=== PATIENT | male | born 1940 | race Caucasian/White ===

== ENCOUNTER 2024-08-30 23:54 | Emergency (ER) | payer MEDICARE, SELFPAY ==
--- NOTE | 2024-08-30 23:32 | ECG_ITS ---
APPROVED REPORT Exam: Resting ECG HR:66 bpm ECG Measurements Heart Rate 66 AXES QRSd 104 QRS 80 QT 448 T 16 QTc 462 Conclusion ATRIAL FIBRILLATION SEPTAL MYOCARDIAL INFARCTION , OF INDETERMINATE AGE [40+ ms Q WAVE IN V1/V2] MARKED ST DEPRESSION, CONSIDER SUBENDOCARDIAL INJURY [0.2+ mV ST DEPRESSION] ACUTE NV INTERPRETATION BASED ON A DEFAULT AGE OF 40 YEARS UNCONFIRMED REPORT Electronically signed by : WINSTON BECKHAM, 09/01/2024 06:49:13
[2024-08-30 23:37] VITALS: BP 39/21; PULSE 60; RESP 11; TEMP 35.9; O2SAT 94; BMI 15.6
--- NOTE | 2024-08-30 23:37 | XR_ITS ---
PROCEDURE INFORMATION: Exam: XR Chest Exam date and time: 08/30/2024 11:31 PM Age: 84 years old Clinical indication: Device placement; Ett placement (vent status); Additional info: Cardiac arrest TECHNIQUE: Imaging protocol: Radiologic exam of the chest. Views: 1 view. COMPARISON: No relevant prior studies available. FINDINGS: Tubes, catheters and devices: Endotracheal tube within the right main bronchus. Lungs: Severe pulmonary fibrotic change. Pleural spaces: Unremarkable. No pleural effusion. No pneumothorax. Heart/Mediastinum: Unremarkable. No cardiomegaly. Bones/joints: Unremarkable. Intraperitoneal space: Prominent gas left upper abdomen, upright KUB or CT might be important to exclude free air. IMPRESSION: Endotracheal tube as described.
--- NOTE | 2024-08-30 23:55 | HMH.EDGENADL ---
Discharge Plan Disposition Patient Disposition: Date/Time: 08/31/24 00:14 Clinical Impressions Clinical Impression: Cardiac arrest, Pulmonary fibrosis Discharge ED Provider: Jad Marsh Adult HPI General Stated complaint: Code Time Seen by Provider: 08/30/24 23:55 History of Present Illness HPI narrative: 84-year-old male with history of end-stage pulmonary fibrosis as well as other comorbidities presents after cardiac arrest. Patient was found some [place] in a chair and family did not want to do CPR. They called 911 and when EMS arrives the family did not have a DNR so EMS felt compelled to initiate CPR. And route to the hospital patient got a pulse back. Patient was intubated prior to arrival to the ER. On arrival patient had a irregular slow rhythm, blood pressure on cuff is in the 30s systolic. Patient does have a palpable pulse. [facility] Disclaimer: The information contained in this section may have been updated after the patient was seen, as this information can be updated by other users. Social History (Updated 08/31/24 @ 00:35 by Jad Marsh MD) Smoking Status: Former smoker alcohol intake: never current occupational status: retired Travel in the last 8 weeks: None ROS Obtained: Yes unobtainable due to endotracheal tube Physical Exam General General appearance: obtunded and cachectic Head Head exam: atraumatic and normocephalic Eye Eye exam: Present other (Pupils fixed, mid dilated) ENT ENT exam: Present mucous membranes dry Neck Neck exam: Present normal inspection Chest Chest inspection: Present symmetric chest wall rise; Absent tenderness Respiratory Respiratory exam: Present normal lung sounds bilaterally; Absent respiratory distress Cardiovascular Cardiovascular exam: Present bradycardia and irregular rhythm Abdominal Exam Abdominal exam: Present soft; Absent distention or guarding Extremities Exam Extremities exam: Present edema Back Exam Back exam: Present normal inspection Neurological Exam Neurological exam: Present other (GCS 3) Psychiatric Psychiatric exam: Present other (Obtunded) Skin Skin exam: Present dry Lymphatic Lymphatic Findings: no adenopathy Medical Decision Making Medical Records Medical records reviewed: Yes I reviewed the patient's medical records. Screening: Per USPSTF and CDC recommendations, given the prevalence of disease in our region, it is our hospital?s policy to screen for HIV and viral Hepatitis for all patients aged 18 and over and those with ongoing risk factors. Oscar Inquiry Pt receiving controlled substance: No Oscar was queried for this patient: No Lab Data Lab results reviewed: Yes I reviewed the patient's lab results. Orders (Tests/Meds): ORDERS Category Date Time Status CXR --portable [XR chest portable] Stat Exams 08/30/24 23:37 Completed ECG Data Tracing #1: I reviewed this ECG and interpreted as documented below: Atrial fibrillation, rate of 66, ST depression in the precordial leads, Q waves in inferior leads ECG initial impression date: 08/31/24 ECG initial impression time: 23:33 Medical Decision Narrative: 84-year-old male with history of end-stage pulmonary fibrosis presents via EMS after cardiac arrest. Per report, patient was found some sober in a chair without a pulse. Family did not want to do CPR but they did not have a DNR available. Given this, EMS felt compelled to initiate CPR. Intubated the patient and route and did 2 rounds of CPR with ROSC. On arrival patient has a pulse, blood pressure is in the 30s systolic on cuff pressure. EKG on arrival does not show a STEMI, does show significant ST depressions. Chest x-ray was obtained and independently interpreted by me and shows that the tube is right mainstemed, it was pulled back 3 cm. Patient began coding again shortly after arrival. ACLS was initiated. Family arrived shortly afterwards and reports that the patient does not want any resuscitation of any kind, including no intubation, chest compressions, shocks etc. By the time I got back into the room after discussion with family, patient had a pulse. He remains obtunded, no spontaneous breathing, pupils unreactive. the family reports that they still do not want any further resuscitation and they would like us to pull the ET tube and make him comfortable. This was performed and patient at 0014. Procedures Risk/Benefits of Procedure(s) Were Explained: Yes Critical Care Critical Care Time Critical Care Time: Yes Attestation: On , the high probability of a clinically significant, sudden or life threatening deterioration of the following system(s) required my full and direct attention, intervention and personal management. The time I documented below is in addition to time spent performing reported procedures but includes the following listed in this critical care notation. Total Time Total Critical Care Time: 45
--- NOTE | 2024-08-31 00:49 | P.DN_ITS ---
Pronouncement Note Date and Time of Date of : 08/31/24 Time of : 00:14 PCOD Preliminary cause of : Pulmonary fibrosis Contributing Factors (1) Pulmonary fibrosis: Summary Additional details: 84-year-old male with history of severe pulmonary fibrosis had a cardiac arrest at home. ROSC was achieved by EMS. He coded again in the hospital with ROSC. Family reports that he did not want any resuscitative care and asked us to withdraw care. Care was withdrawn and patient shortly after. Additional Data Confirmation of : no pulse, no respirations, no heart sounds and pupils fixed and dilated Family: at bedside Attending/PCP notified?: Yes Attending physician: Salma GRULLON Was code activated?: Yes Autopsy should be considered if:: Unknown or unanticipated medical complications Cause is not known with certainty on clinical grounds Would allay concerns of the public/family regarding Unexplained/unexpected apparently natural and not subject to a forensic medical jurisdiction DOA Within 24 hours of admission Sustained or apparently sustained injury while in the hospital Result of high risk, infectious and contagious disease Obstetric and pediatric arising from environmental or occupational hazard Unexplained/unexpected from dental, medical, or surgical diagnostic procedures and/or therapies Would disclose a known or suspected illness which also may have a bearing on survivors or recipients of transplanted organs Autopsy requested?: No Does not meet criteria finished cloth examiner notified?: Yes Organ bank notified?: Yes Advance directives: No
--- NOTE | 2024-08-31 00:57 | PC.NURSE ---
Pt arrived EMS in ROSC. Pt was found down, unresponsive, and pulse less at home. EMS initiated CPR and intubated on scene. EMS was able to obtain a pulse (2320) en route. Pt arrived to our facility intubated, with a pulse. 2326-arrival 2327- BS 146 2328- HR 60, N-tidal 56, unable to obtain BP 2329- HR 71 2333- BP 39/21 (manual) 2334- Infertility Medical Assistant arrived on scene. (She had been called to the home at first) 2335- XRAY verified ET tube- pull back 3cm- 23@lip 2337- Levo started 8mcg/min per Dr. Marsh 2339- 18g placed by SARA Rodriguez. Unable to obtain blood 2340- Asystole. CPR resumed using Auto Pulse 2340- Family has arrived. Dr. Marsh is speaking with them now. 2341- EPI in 2342- ROSC Pulse is 41 2343- Life saving efforts need to stop per family. (Dr. Marsh verified) 2345- ET tube removed 2346- Auto Pulse removed 2350- 4mg of Morphine administered 2351- Family is bedside. This RN spoke with family and answered all questions that they have at this time. 0002- Pt asystole on monitor. This RN performed femoral pulse check, no pulse. Notified Dr. Marsh 0014- TOD called by Dr. Marsh 0027- Called [facility] & spoke w/ Sloan. Referral #[id number]- [facility] released 0033- Infertility Medical Assistant spoke with home & they will be en route. Infertility Medical Assistant left. 0034- Home called and stated they were en route from [place] 0035- Family informed that home was on the way. 0140- Pati Ling director of sustainability arrived. 0143- digital art director is speaking with family bedside at this time.
--- NOTE | 2024-08-31 02:06 | PC.NURSE ---
Pt departed facility w/ home @[id number]
[2024-08-31] MEDS: EPINEPHrine 0.1 MG/ML 10ML SYRINGE (CRASH CART) 1 MG IV (02:07)
[2024-08-31] MEDS: MORPHINE 4MG/ML SYRINGE 4 MG IV (02:09)
[2024-08-31] MEDS: NOREPINEPHRINE BITARTRATE/D5W 8 MG/250 ML PLAST..BAG 15 MG IV (02:09)
[2024-08-31 02:11] VITALS: BP 000/00; PULSE 0; RESP 0; TEMP -17.7; TEMP 0; O2SAT 0
== END 2024-08-31 01:56 | disposition expired ==
LOC: ER 08-31 02:13
PROVIDERS: Emergency Provider Emergency Medicine
DX: I46.9 Cardiac arrest, cause unspecified (principal); J84.10 Pulmonary fibrosis, unspecified
CPT/HCPCS: 71045; 92950; 93005; 96374; 96375; 99291; J0171; J2270